=== PATIENT | female | born 1965 | race Caucasian/White ===

== ENCOUNTER 2020-06-04 15:23 | Outpatient (CLI) | payer OTHER, SELFPAY ==
--- NOTE | ~2020-06-04 | MM_ITS ---
EXAMINATION: MM screening [facility] BI w [place] HISTORY: Screening mammogram TECHNIQUE: Craniocaudal and mediolateral oblique 3-D tomosynthesis images were obtained and synthetic 2-D images were generated. CAD analysis was submitted and interpreted. COMPARISON: 02/03/2015, 12/24/2013 BREAST PARENCHYMAL COMPOSITION: There are scattered areas of fibroglandular density. FINDINGS: There is no evidence of suspicious mass, calcification, or architectural distortion to sugg est malignancy in either breast. There has been no suspicious interval change. IMPRESSION: 1. No mammographic evidence of malignancy. 2. Recommend routine screening mammography in one year. BI-RADS Category 1: Negative Reviewed, dictated and finalized at location A. R PATTERN INSPECTOR
== END 2020-06-04 15:24 | disposition home or self-care (01) ==
PROVIDERS: PCP Internal Medicine; Visit Provider Obstetrics & Gynecology
DX: Z12.31 Encounter for screening mammogram for malignant neoplasm of breast (principal)
CPT/HCPCS: 77063; 77067

== ENCOUNTER 2020-07-13 11:33 | Outpatient (NON) | payer OTHER, SELFPAY ==
[2020-07-14 01:42] LABS: SARS-CoV-2 RNA PCR Negative
== END 2020-07-13 11:34 ==
LOC: ANHCOVIDDT 11:34
PROVIDERS: PCP Internal Medicine; Visit Provider Internal Medicine
DX: R68.89 Other general symptoms and signs (principal); Z20.828 Contact with and (suspected) exposure to other viral communicable diseases
CPT/HCPCS: 87635; C9803; U0003

== ENCOUNTER 2021-09-20 11:10 | Observation (INO) | payer OTHER, SELFPAY ==
[2021-09-20] VITALS (25 sets, daily range): BP systolic 123–141; BP diastolic 71–94; PULSE 51–63; RESP 13–19; TEMP 36.4–36.9; O2SAT 97–98; BMI 25.0
--- NOTE | ~2021-09-20 | XR_ITS ---
EXAMINATION: XR chest 2V 09/20/2021 11:39 INDICATION: Chest tightness and dyspnea PROCEDURE: 2 view chest COMPARISON: Comparison to multiple prior studies sequentially, with oldest reviewed study dated 08/29. FINDINGS: The lungs are clear. The cardiomediastinal silhouette is within normal limits. There are no pleural effusions. There is no pneumothorax suspected. IMPRESSION: 1: NO ACUTE CARDIOPULMONARY DISEASE. Reviewed, dictated and finalized at location B. STRAP IRONER
--- NOTE | 2021-09-20 11:16 | ECG_ITS ---
Measurements Intervals [place] Rate: 58 P: -7 NV: 216 QRS: 15 QRSD: 93 T: -10 QT: 408 QTc: 402 Interpretive Statements SINUS BRADYCARDIA WITH FIRST DEGREE AV BLOCK LOW QRS VOLTAGE IN PRECORDIAL LEADS CONSIDER INFERIOR INFARCT, AGE INDETERMINATE BASELINE ARTIFACT- II, III, AVR, AVF, V1, V3-V6 ABNORMAL ECG Electronically Signed On 09-20-2021 12:33:59 CONTRACT DESIGNER by Anupam Taylor D.O.
[2021-09-20 11:30] LABS: Basophils Absolute Auto 0.1 K/mm3 (0.0-0.1); Basophils Percent Auto 0.8 % (0.2-1.2); Eosinophils Absolute Auto 0.1 K/mm3 (0-0.3); Eosinophils Percent Auto 1.4 % (0-4.4); Hematocrit 38.8 % (37.0-47.0); Hemoglobin 12.8 g/dL (12.0-15.0); Immature Granulocyte Absolute 0.02 K/mm3 (0.00-0.031); Immature Granulocyte Percent A 0.3 % (0-0.5); Lymphocytes Absolute Auto 2.02 K/mm3 (0.9-3.2); Lymphocytes Percent Auto 30.8 % (18.3-44.2); Mean Corpuscular Hemoglobin 27.9 pg (26-34); Mean Corpuscular Volume 84.7 fl (80-100); Mean Platelet Volume 10.7 fl (7.4-10.4); Monocytes Absolute Auto 0.4 K/mm3 (0.1-0.6); Monocytes Percent Auto 6.4 % (2.6-8.5); Neutrophils Percent Auto 60.3 % (45.5-73.1); Platelet Count Result 206 k/mm3 (150-375); Red Blood Count 4.58 M/mm3 (4.2-5.4); Red Cell Distribution Width 13.3 % (11.5-14.5); White Blood Count 6.6 K/mm3 (4.5-10.0)
[2021-09-20 11:40] LABS: Alanine Aminotransferase 13 U/L (4-35); Albumin Level 4.4 g/dL (3.5-5.1); Alkaline Phosphatase 82 U/L (38-126); Anion Gap 8 mmol/L (8-16); Aspartate Amino Transferase 24 U/L (14-36); Bilirubin,Total 0.5 mg/dL (0.2-1.3); Blood Urea Nitrogen 22 mg/dL (7-17); Calcium 9.3 mg/dL (8.4-10.2); Carbon Dioxide 23 mmol/L (22-30); Chloride 108 mmol/L (98-107); Estimated CRCL calculation 62 ml/min; Estimated Glomerular Filt Rate > 60; Glucose 92 mg/dL (65-110); INR 0.9; Lipase 121 U/L (23-300); Partial Thromboplastin Time 25.3 SECONDS (22.3-36.8); Potassium 3.9 mmol/L (3.4-5.0); Sodium 139 mmol/L (137-145)
[2021-09-20 11:51] LABS: Troponin I < 0.012 ng/mL (0.000-0.034)
--- NOTE | 2021-09-20 12:05 | PC.NURSE ---
EDP at bedside to assess patient.
--- NOTE | 2021-09-20 12:50 | ED.CHESTPAIN ---
HPI - Chest Pain General Chief Complaint: Chest Pain Stated Complaint: Chest Pain, jaw Tightness Time Seen by Provider: 09/20/21 12:03 Source: patient and RN notes reviewed Mode of arrival: ambulatory Limitations: no limitations History of Present Illness HPI narrative: This is a 56 year old female with history of hypertension and hyperlipidemia who presents for evaluation of chest pain. She has been having midsternal chest pain with pain in her jaw intermittently for 2 weeks. This pain usually only last for a few minutes. It occurs with exertion and rest. It is not always exertional. Today she was cleaning her patient's teeth when she developed chest pain again. She reports this pain was more severe and lasted longer. Her pain last approximately 30 minutes. She also had associated dizziness and shortness of breath. She states she has been seen by her PCP regarding this pain and it was thought to be anxiety. She reports having stressed test 15 years ago. Her father of an [place] at age 46. Related Data Home Medications Medication Instructions Recorded Confirmed estradiol-norethindrone acet 1 tablet PO HS 09/20/21 09/20/21 ibuprofen 600 mg PO PRN PRN 09/20/21 09/20/21 lisinopril 10 mg PO HS 09/20/21 09/20/21 trazodone 50 mg PO HS 09/20/21 09/20/21 venlafaxine 37.5 mg PO HS 09/20/21 09/20/21 Allergies Allergy/AdvReac Type Severity Reaction Status Date / Time fluconazole Allergy Unknown Hives Verified 09/20/21 15:27 codeine AdvReac Severe Nausea Verified 09/20/21 15:27 Review of Systems Review of Systems: All systems reviewed & are unremarkable except as noted in HPI and below PMFSH Past Medical History Medical History (Updated 09/20/21 @ 20:59 by Vanna Pinto MD) Anxiety Gastroesophageal reflux disease Hard of hearing Hypertension Hypothyroidism No longer on medication. Skin cancer Surgical History Surgical History (Updated 09/20/21 @ 20:24 by Kymberly Mckeon PA-C) History of colonoscopy History of dilation and curettage History of squamous cell carcinoma excision History of surgery on left wrist Left wrist compartment release for de Quervain syndrome. Family History Family History (Updated 09/20/21 @ 20:25 by Kymberly Mckeon PA-C) Father Hypertension Acute myocardial infarction of an [place] at age 46. Mother Alzheimer's dementia Social History Social History (Updated 09/20/21 @ 20:26 by Kymberly Mckeon PA-C) Social History: Surrogate decision maker: Julio Matson, brother. Code status: Full code. Smoking status: Never smoker Alcohol intake: never Substance use: former Substance use type: former substance user Living arrangements: alone Additional occupation/education comments: Dental hygienist Spiritual care concerns: No Exam Const: General: no acute distress and alert Orientation/consciousness: patient oriented x3 Eyes: EOM: EOMs intact bilaterally Chest: Chest palpation & inspection: normal inspection of the chest Resp: Effort & Inspection: normal respiratory effort and no retractions Auscultation: clear to auscultation bilaterally Cardio: Rate: regular rate Rhythm: regular rhythm Heart sounds: no murmurs GI: GI Palp: Yes Soft to palpation, No Tenderness to palpation present (GI) and No Guarding due to palpation present (GI) Auscultation: normal bowel sounds Back/Spine/Pelvis: Back: no CVA tenderness Skin: General skin exam: normal color Rashes: no rashes Neuro: General: patient oriented x3, moves all extremities and CN's II-XI intact bilaterally Psych: Mental Status: mental status grossly normal Affect: normal affect Course Reevaluation(s) Reevaluation #1: Patient is still pain free. I discussed with patient labs and plan to obs. She understands she is being obs for evaluation by cardiology due to heart score classifying elevated risk . I spoke with Emily Torres from [facility] to see if they bashir
--- NOTE | 2021-09-20 14:50 | PM.IMHP ---
H&P: HPI History of Present Illness Date/Time: 09/20/21 14:50 Chief Complaint: Chest pain. Narrative: This is a 56-year-old female with hypertension and anxiety who presented to the ER for evaluation of intermittent chest pain for the past 2 weeks. Her symptoms start with an aching discomfort in her lower jaw and teeth and shortly thereafter she develops midsternal chest tightness associated with mild shortness of breath and occasional nausea and dizziness. She sees no pattern as to when it occurs, reporting that it can happen with exertion or rest. She has not identified any aggravating or alleviating factors. It has been self-limiting, lasting between 10 to 15 minutes at a time. She saw her primary care provider for the symptoms last week at which time it was likely due to an increase in stress and anxiety recently. An EKG was not done at that time. 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 Prior to arrival she took 281 mg aspirin and she has not had any discomfort since that time. It should be noted that the patient's father of an acute [place] at the age of 46. The patient had a stress test done approximately 15 years ago which was reportedly unremarkable. Review of Systems Review of Systems: Twelve systems were reviewed. She seems that she had COVID at the beginning of July as multiple colleagues had COVID and her symptoms were consistent with such however she was unable to have a test. She was vaccinated and received a booster as well. No orthopnea, PND, or lower extremity edema. She denies pleuritic pain and palpitations. Except as documented, all other systems were reviewed and are negative. [facility] Past Medical History Medical History (Updated 09/20/21 @ 20:27 by Kymberly Mckeon PA-C) Anxiety Gastroesophageal reflux disease Hard of hearing Hypertension Hypothyroidism No longer on medication. Skin cancer Surgical History Surgical History (Updated 09/20/21 @ 20:24 by Kymberly Mckeon PA-C) History of colonoscopy History of dilation and curettage History of squamous cell carcinoma excision History of surgery on left wrist Left wrist compartment release for de Quervain syndrome. Family History Family History (Updated 09/20/21 @ 20:25 by Kymberly Mckeon PA-C) Father Hypertension Acute myocardial infarction of an [place] at age 46. Mother Alzheimer's dementia Social History Social History (Updated 09/20/21 @ 20:26 by Kymberly Mckeon PA-C) Social History: Surrogate decision maker: Julio Matson, brother. Code status: Full code. Smoking status: Never smoker Alcohol intake: never Substance use: former Substance use type: former substance user Living arrangements: alone Additional occupation/education comments: Dental hygienist Spiritual care concerns: No Meds Home Medications and Allergies Home Medications Medication Instructions Recorded Confirmed Type estradiol-norethindrone acet 1 tablet PO HS 09/20/21 09/20/21 History ibuprofen 600 mg PO PRN PRN 09/20/21 09/20/21 History lisinopril 10 mg PO HS 09/20/21 09/20/21 History trazodone 50 mg PO HS 09/20/21 09/20/21 History venlafaxine 37.5 mg PO HS 09/20/21 09/20/21 History Allergies Allergy/AdvReac Type Severity Reaction Status Date / Time fluconazole Allergy Unknown Hives Verified 09/20/21 15:27 codeine AdvReac Severe Nausea Verified 09/20/21 15:27 Vital Signs Vital Signs - 24 hr 09/20/21 11:18 09/20/21 11:25 09/20/21 11:30 Temperature 98.4 F Pulse Rate 59 L 63 62 Respiratory Rate 16 16 Blood Pressure 124/83 126/79 Pulse Oximetry 98 97 09/20/21 11:45 09/20/21 12:00 09/20/21 12:15 Temperature Pulse Rate 59 L 57 L 57 L Respiratory Rate 16 16 17 Blood Pressure 130/79 128/83 130/86 Pulse Oximetry 97 98 98 09/20/21 12:24 09/20/21 12:25 09/20/21 12:30 Temperature
--- NOTE | 2021-09-20 14:53 | PC.NURSE ---
Hospitalist HAIRSPRING FABRICATION SUPERVISOR at bedside.
--- NOTE | 2021-09-20 15:20 | PC.NURSE ---
This patient, Vivienne Park, was admitted to [facility]. Patient/family oriented to hospital policies and general routines including ID bracelet, bed and alarms, visiting hours, pain management, procedures, bathroom and other care routines, personal items, smoking policy, room service/diet, and visiting hours. Information on how to activate the Rapid Response Team has been discussed. Patient/Family are encouraged to report perceived risks to care and to ask questions if they do not understand what they are told or what they should do.
[2021-09-20 15:45] LABS: Troponin I < 0.012 ng/mL (0.000-0.034)
[2021-09-20 19:56] LABS: Troponin I < 0.012 ng/mL (0.000-0.034)
[2021-09-20] MEDS: ENOXAPARIN 40 MG/0.4 ML SYRINGE SUB-Q (22:04)
[2021-09-21] VITALS (11 sets, daily range): BP systolic 100–117; BP diastolic 58–71; PULSE 46–69; RESP 14–17; TEMP 36.8; O2SAT 95–97
[2021-09-21 06:12] LABS: LDL Cholesterol Direct 128 mg/dL
[2021-09-21 06:18] LABS: Anion Gap 6 mmol/L (8-16); Blood Urea Nitrogen 18 mg/dL (7-17); Calcium 8.5 mg/dL (8.4-10.2); Carbon Dioxide 21 mmol/L (22-30); Chloride 109 mmol/L (98-107); Cholesterol 222 mg/dL (0-200); Estimated CRCL calculation 70 ml/min; Estimated Glomerular Filt Rate > 60; Glucose 91 mg/dL (65-110); HDL Direct 55 mg/dL; Magnesium 2.4 mg/dL (1.6-2.3); Potassium 4.1 mmol/L (3.4-5.0); Sodium 136 mmol/L (137-145); Triglycerides 97 mg/dL (<150)
[2021-09-21] MEDS: ASPIRIN 81 MG CHEWABLE TABLET PO (08:47)
[2021-09-21] MEDS: ACETAMINOPHEN 325 MG TABLET 650 MG PO (10:19)
--- NOTE | 2021-09-21 13:15 | PM.CNCAR ---
Assessment and Plan Additional Plan This is a 56-year-old lady with a history of some stress and anxiety who has been having episodes of nonexertional chest and jaw pain off and on for several weeks. Following admission there is no evidence of acute coronary syndrome. I believe she is stable enough to be discharged for outpatient evaluation. I would recommend arranging for a stress echocardiogram which I intend to do in my office in the next time of mutual convenience. Hopefully that will be a negative study and provide reassurance obviously if we see evidence of ischemia angiography will be recommended. Hemanth Reilly MD [facility] History of Present Illness History of Present Illness Consult date/time: 09/21/21 13:15 Consult reason: chest pain Reason For Visit: chest pain Narrative: This is a 56-year-old lady am seeing at the request of the hospitalist because of chest and jaw pain with which she was admitted to the hospital yesterday after being seen in the emergency room. She is not known to have any cardiac problems before this and if she has been having episodes of pain in the chest and into the jaw intermittently for about 2 or 3 weeks at least. These episodes seem to occur at random they are not related to physical exertion that she has noticed. She does not have any associated sense of diaphoresis nausea or vomiting she does not have any radiation of the pain to any other location. She is not experiencing any orthopnea PND or edema. She does not have any history of palpitations or syncope. In the course of her job yesterday she had the symptoms. 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 Her supply officer brought to the emergency room for evaluation she was then admitted to the hospital. The patient's ECG does not show any evidence of acute injury or ischemia. Troponin levels are normal x3 sets. She is currently asymptomatic and has no other complaints. She says she does have a history of an anxiety issue and she was wondering if he symptoms could be related to stress. Review of Systems Constitutional: Constitutional: Reports no additional constitutional complaints Eyes: Eyes: Reports no additional eye complaints ENT: Reports system reviewed and no additional complaints, except as documented Cardiovascular: Cardiovascular: Reports as per HPI Respiratory: Respiratory: Reports no additional respiratory complaints Gastrointestinal: Gastrointestinal: Reports no additional gastrointestinal complaints Musculoskeletal: Musculoskeletal: Reports no additional musculoskeletal complaints Integumentary/Breasts: Skin/Breast: Reports system reviewed and no additional complaints, except as docu Neurologic: Reports system reviewed and no additional complaints, except as documented Endocrine: Endocrine: Reports no additional endocrine complaints Hematologic/Lymphatic: Hematologic/Lymphatic: Reports no additional hematologic/lymphatic complaints Allergic/Immunologic: Allergic/Immunologic: Reports no additional allergic/immunologic complaints [facility] Past Medical History Medical History (Updated 09/20/21 @ 20:59 by Vanna Pinto MD) Anxiety Gastroesophageal reflux disease Hard of hearing Hypertension Hypothyroidism No longer on medication. Skin cancer Surgical History Surgical History (Updated 09/20/21 @ 20:24 by Kymberly Mckeon PA-C) History of colonoscopy History of dilation and curettage History of squamous cell carcinoma excision History of surgery on left wrist Left wrist compartment release for de Quervain syndrome. Family History Family History (Updated 09/20/21 @ 20:25 by Kymberly Mckeon PA-C) Father Hypertension Acute myocardial infarction of an [place] at age 46. Mother Alzheimer's dementia Social History Social History (Updated 09/20/21 @ 20:26 by Kymberly Mckeon PA-C) Social History: Surrogate decision maker
[2021-09-21 14:05] LABS: D Dimer 0.34 ug/mL (<0.48)
--- NOTE | 2021-09-21 14:59 | PM.DS ---
DS: Admitting Diagnosis Discharge Date 09/21/21 Admitting Diagnosis chest pain DS: Discharge Diagnosis Discharge Diagnosis (1) Chest pain: Code(s): R07.9 - Chest pain, unspecified Status: Acute Assessment and Plan: -history of some stress and anxiety who has been having episodes of nonexertional chest and jaw pain off and on for several weeks -pt was admitted overnight for cardiac monitoring -hx of HTN, early onset coronary artery disease in the family -negative trop x3 -EKG shows sinus bradycardia with first-degree AV block -evaluated by cardiology who states no evidence of acute coronary syndrome. Dr. Reilly feels patient is stable to be discharged for outpatient stress echo. She will follow up with him outpatient. (2) Hypertension: Code(s): I10 - Essential (primary) hypertension Status: Acute Assessment and Plan: -stable -continued antihypertensives (3) Anxiety: Code(s): F41.9 - Anxiety disorder, unspecified Status: Acute Assessment and Plan: -Initially patient was blaming her symptoms on anxiety. -No acute issues at this time. -Continued venlafaxine. (4) Bradycardia: Code(s): R00.1 - Bradycardia, unspecified Status: Acute Assessment and Plan: -EKG shows sinus bradycardia with first-degree AV block thus will hold on beta blockade at this time. -TSH WNL -outpatient cardiology follow up DS: Summary Hospital Course Reason for hospitalization: 56-year-old female with hypertension and anxiety who presented to the ER for evaluation of intermittent chest pain for the past 2 weeks. Please see HPI for further details. Hospital Course: Please see above for details of hospital course. Status at Discharge Cognitive/behavioral status at discharge: stable Functional status at discharge: independent ambulation Overall status at discharge: patient is progressing back to baseline Time Spent with Patient Time attestation: Total time spent providing and/or coordinating discharge services: 35 Time spent: Greater than 30 minutes Exam Narrative: General: Well-developed female sitting up in bed. Weight: 76.7 kg. BMI: 25.0. HEENT: PERRL. Sclerae anicteric. Oral mucosa moist. Oropharynx clear. Neck: Supple. Respiratory: Lungs are clear to auscultation bilaterally. Cardiovascular: Bradycardic with regular rhythm with S1-S2. Chest: Mild tenderness to palpation of the lower sternum. Gastrointestinal: Abdomen is soft, nontender, and nondistended with positive bowel sounds. Skin: Warm and dry. No rash or lesions on limited exam. Extremities: No cyanosis, clubbing, or edema. Radial and pedal pulses intact. Neurological: Alert. Cranial nerves 2-12 are grossly intact. No gross focal deficits to casual conversation. Psychiatric: Pleasant and cooperative with normal mood and affect. Judgment and insight intact. DS: Data Data Completed and Pending Labs on day of discharge: Labs from last 24 hours 09/21/21 09/21/21 09/21/21 13:47 05:14 05:14 D-Dimer 0.34 Sodium 136 L Potassium 4.1 Chloride 109 H Carbon Dioxide 21 L Anion Gap 6 L BUN 18 H Creatinine 0.80 Estim Creat Clear Calc 70 Estimated GFR > 60 Glucose 91 Calcium 8.5 Magnesium 2.4 H Troponin I Triglycerides 97 Cholesterol 222 H LDL Cholesterol Direct 128 HDL Direct 55 TSH (Reflex) 3.610 09/20/21 09/20/21 19:19 16:38 D-Dimer Sodium Potassium Chloride Carbon Dioxide Anion Gap BUN Creatinine Estim Creat Clear Calc Estimated GFR Glucose Calcium Magnesium Troponin I < 0.012 < 0.012 Triglycerides Cholesterol LDL Cholesterol Direct HDL Direct TSH (Reflex) Discharge Plan Discharge Attending physician on discharge: Maria Isabel Encinas Consulting providers: Hemanth Reilly Discharging Clinician: Brown
--- NOTE | 2021-09-21 16:11 | PC.NURSE ---
Patient alert/oriented, FREY, no pain, no distress noted of any kind. Left AC 20g d/c'd, no bleeding/hematoma at site, gauze dressing applied. Patient wheelchaired down to front lobby to waiting private vehicle. No prescriptions noted. Discharge paperwork explained with verbal understanding noted.
== END 2021-09-21 16:19 | disposition home or self-care (01) ==
LOC: ANHED 12:03 → ANHCPC 14:10
PROVIDERS: Emergency Medicine; Physician Assistant; Admitting Provider Internal Medicine; Emergency Provider General Practice; PCP Internal Medicine; Visit Provider Internal Medicine
DX: R07.9 Chest pain, unspecified (principal); I44.0 Atrioventricular block, first degree; R00.1 Bradycardia, unspecified; I10 Essential (primary) hypertension; F41.9 Anxiety disorder, unspecified; K21.9 Gastro-esophageal reflux disease without esophagitis; E03.9 Hypothyroidism, unspecified; R06.02 Shortness of breath; Z85.828 Personal history of other malignant neoplasm of skin
CPT/HCPCS: 36415; 71046; 80048; 80053; 80061; 83690; 83735; 84443; 84484; 85025; 85380; 85610; 85730; 93005; 96372; 99285; A9270; G0378; J1650

== ENCOUNTER 2021-09-30 10:50 | Emergency (ER) | payer OTHER, SELFPAY ==
[2021-09-30] VITALS (16 sets, daily range): BP systolic 116–147; BP diastolic 72–86; PULSE 53–76; RESP 13–20; TEMP 36.3–36.8; O2SAT 93–100
--- NOTE | ~2021-09-30 | XR_ITS ---
EXAMINATION: XR chest 2V DATE: 09/30/2021 11:14 INDICATION: Right chest pain. Shortness of breath. TECHNIQUE: Frontal and lateral views of the chest were obtained. COMPARISON: Chest 2 views 09/20/2021 FINDINGS: The chest demonstrates clear lungs without pneumonia, pleural effusion, or pneumothorax. Th e heart size is normal. IMPRESSION: 1. No acute cardiopulmonary disease. Reviewed, dictated and finalized at location A. BUILDER APPRENTICE
--- NOTE | ~2021-09-30 | CT_ITS ---
EXAMINATION: Vanna Pinto MD DATE: 09/30/2021 12:17 INDICATION: Chest pain. TECHNIQUE: Computed tomographic angiography (CTA) of the chest, abdomen, and pelvis was performed wit h 100 mL Omnipaque-350 intravenous contrast. Automated exposure control and iterative reconstruction technique were employed. The dose-length product was 642.85 mGy-cm. Maximum intensity projection 3D-r econstructions of the aorta and other arteries were constructed by the technologist on a separate wor kstation. COMPARISON: None. FINDINGS: CHEST CTA: The lungs demonstrate mild atelectasis. No pleural effusion. The heart size is normal. No pericardial effusion. Thoracic aorta is normal. There is no pulmonary embolus. There is moderate thoracic spondy losis. ABDOMEN AND PELVIS CTA: The liver, gallbladder, spleen, pancreas, and adrenal glands are normal. There is cortical thinning o f the kidneys. There are no dilated loops of bowel. The appendix is normal. There are no pathological ly enlarged lymph nodes. There is no free intraperitoneal fluid. There is mild aortic atherosclerosis . No aneurysm or dissection. There is no significant stenosis of celiac axis, superior mesenteric art melanie, the renal arteries, or inferior mesenteric artery. There is mild lumbar spondylosis. IMPRESSION: 1. Mild aortic atherosclerosis. No aneurysm or dissection. 2. No pulmonary embolus. Reviewed, dictated and finalized at location A. [employer]
--- NOTE | 2021-09-30 10:57 | ECG_ITS ---
Measurements Intervals [place] Rate: 56 P: 19 [place]: 230 QRS: 13 QRSD: 85 T: 29 QT: 405 QTc: 391 Interpretive Statements SINUS BRADYCARDIA WITH FIRST DEGREE AV BLOCK LOW QRS VOLTAGE IN PRECORDIAL LEADS [QRS DEFLECTION < 1.0 mV IN CHEST LEADS] POSSIBLE ANTEROSEPTAL MYOCARDIAL INFARCTION , PROBABLY OLD [30 ms Q WAVE IN V3/V4, OR R < 0.2 mV IN V4] COMPARED TO ECG 09/20/2021 11:20:25 NO SIGNIFICANT CHANGES Electronically Signed On 09-30-2021 15:54:37 THREAD GRINDER TOOL by Hemanth Reilly M.D.
[2021-09-30 11:41] LABS: Basophils Absolute Auto 0.1 K/mm3 (0.0-0.1); Basophils Percent Auto 0.7 % (0.2-1.2); Eosinophils Absolute Auto 0.1 K/mm3 (0-0.3); Eosinophils Percent Auto 1.3 % (0-4.4); Hemoglobin 13.7 g/dL (12.0-15.0); Immature Granulocyte Absolute 0.02 K/mm3 (0.00-0.031); Immature Granulocyte Percent A 0.3 % (0-0.5); Lymphocytes Absolute Auto 2.16 K/mm3 (0.9-3.2); Lymphocytes Percent Auto 31.2 % (18.3-44.2); Mean Corpuscular HGB Conc 31.9 g/dl (32-36); Mean Corpuscular Hemoglobin 27.6 pg (26-34); Mean Corpuscular Volume 86.7 fl (80-100); Monocytes Absolute Auto 0.4 K/mm3 (0.1-0.6); Monocytes Percent Auto 6.1 % (2.6-8.5); Neutrophils Absolute Auto 4.2 K/mm3 (1.3-6.7); Neutrophils Percent Auto 60.4 % (45.5-73.1); Platelet Count Result 207 k/mm3 (150-375); Red Blood Count 4.96 M/mm3 (4.2-5.4); Red Cell Distribution Width 13.8 % (11.5-14.5); White Blood Count 6.9 K/mm3 (4.5-10.0)
--- NOTE | 2021-09-30 11:44 | PC.NURSE ---
Patient reports that she took Aspirin prior to arrival to ER.
[2021-09-30 11:51] LABS: INR 0.9; Prothrombin Time 12.1 Seconds (11.1-14.7)
[2021-09-30 11:52] LABS: Partial Thromboplastin Time 26.4 SECONDS (22.3-36.8); Potassium 3.9 mmol/L (3.4-5.0)
[2021-09-30 11:56] LABS: Alanine Aminotransferase 19 U/L (4-35); Albumin Level 4.8 g/dL (3.5-5.1); Alkaline Phosphatase 104 U/L (38-126); Anion Gap 11 mmol/L (8-16); Aspartate Amino Transferase 25 U/L (14-36); Bilirubin,Total 0.6 mg/dL (0.2-1.3); Blood Urea Nitrogen 20 mg/dL (7-17); Carbon Dioxide 24 mmol/L (22-30); Chloride 107 mmol/L (98-107); Estimated CRCL calculation 70 ml/min; Estimated Glomerular Filt Rate > 60; Glucose 97 mg/dL (65-110); Lipase 121 U/L (23-300); Sodium 142 mmol/L (137-145)
--- NOTE | 2021-09-30 11:57 | PC.NURSE ---
Dr. Pinto at bedside to assess pt.
[2021-09-30 12:03] LABS: Troponin I < 0.012 ng/mL (0.000-0.034)
[2021-09-30] MEDS: ONDANSETRON INJ 4 MG/2 ML VIAL IV PUSH (12:05)
[2021-09-30] MEDS: MORPHINE SULFATE (*CRX) 4 MG/ML INJ IV PUSH (12:05)
--- NOTE | 2021-09-30 12:11 | ED.CHESTPAIN ---
HPI - Chest Pain General Chief Complaint: Chest Pain Stated Complaint: chest pain Time Seen by Provider: 09/30/21 11:40 Source: patient and RN notes reviewed Mode of arrival: ambulatory Limitations: no limitations History of Present Illness HPI narrative: This is a 56 year old female with history of hypertension and anxiety who presents for evaluation of chest pain. Patient has been having intermittent left chest pain with pain in her jaw for a couple of weeks. She was evaluated in ER over 1 week ago. Cardiology evaluated her and did not feel she was having ACS at that time. She is awaiting to get ECHO stress test as an outpatient. She has returned to ER today because she developed chest pain again this morning at 10 am. She is having diffuse chest tightness this morning which is different. She also reports associated sweating with shortness of breath. She denies cough fever, nausea, vomiting or abdominal pain. She rates pain as 5/10 Related Data Home Medications Medication Instructions Recorded Confirmed estradiol-norethindrone acet 1 tablet PO HS 09/20/21 09/20/21 ibuprofen 600 mg PO PRN PRN 09/20/21 09/20/21 lisinopril 10 mg PO HS 09/20/21 09/20/21 trazodone 50 mg PO HS 09/20/21 09/20/21 venlafaxine 37.5 mg PO HS 09/20/21 09/20/21 Allergies Allergy/AdvReac Type Severity Reaction Status Date / Time fluconazole Allergy Unknown Hives Verified 09/30/21 11:04 codeine AdvReac Severe Nausea Verified 09/30/21 11:04 Review of Systems Review of Systems: All systems reviewed & are unremarkable except as noted in HPI and below PMFSH Past Medical History Medical History (Updated 09/30/21 @ 15:35 by Vanna Pinto MD) Anxiety Gastroesophageal reflux disease Hard of hearing Hypertension Hypothyroidism No longer on medication. Skin cancer Surgical History Surgical History (Updated 09/20/21 @ 20:24 by Kymberly Mckeon PA-C) History of colonoscopy History of dilation and curettage History of squamous cell carcinoma excision History of surgery on left wrist Left wrist compartment release for de Quervain syndrome. Family History Family History (Updated 09/20/21 @ 20:25 by Kymberly Mckeon PA-C) Father Hypertension Acute myocardial infarction of an [place] at age 46. Mother Alzheimer's dementia Social History Social History (Updated 09/20/21 @ 20:26 by Kymberly Mckeon PA-C) Social History: Surrogate decision maker: Julio Matson, brother. Code status: Full code. Smoking status: Never smoker Alcohol intake: never Substance use: former Substance use type: former substance user Additional occupation/education comments: Dental hygienist Spiritual care concerns: No Exam Const: General: no acute distress and alert Orientation/consciousness: patient oriented x3 Eyes: EOM: EOMs intact bilaterally Chest: Chest palpation & inspection: normal inspection of the chest Resp: Effort & Inspection: normal respiratory effort and no retractions Auscultation: clear to auscultation bilaterally Cardio: Rate: regular rate Rhythm: regular rhythm Heart sounds: no murmurs GI: GI Palp: Yes Soft to palpation, No Tenderness to palpation present (GI) and No Guarding due to palpation present (GI) Auscultation: normal bowel sounds Back/Spine/Pelvis: Back: no CVA tenderness Skin: General skin exam: normal color Rashes: no rashes Neuro: General: patient oriented x3, moves all extremities and CN's II-XI intact bilaterally Psych: Mental Status: mental status grossly normal Affect: normal affect Course Reevaluation(s) Reevaluation #1: PAtient was evaluated by cardiology on last hospitalization. IT was thought patient was not related to ACS. Her pain has completely resolved after morphine. Her symptoms are not exertional. I spoke with cardiology and they agree patient can continue with outpatient evaluation. They have order stress ECHO for patient. She has been given
[2021-09-30 14:32] LABS: Troponin I < 0.012 ng/mL (0.000-0.034)
--- NOTE | 2021-09-30 15:09 | PC.NURSE ---
Dr. Pinto back at bedside to update patient on results and plan of care.
== END 2021-09-30 15:53 | disposition home or self-care (01) ==
PROVIDERS: Emergency Provider General Practice; PCP Internal Medicine
DX: R07.89 Other chest pain (principal); I10 Essential (primary) hypertension; K21.9 Gastro-esophageal reflux disease without esophagitis; F41.9 Anxiety disorder, unspecified; Z85.828 Personal history of other malignant neoplasm of skin; I70.0 Atherosclerosis of aorta; R00.1 Bradycardia, unspecified; I44.0 Atrioventricular block, first degree; R94.31 Abnormal electrocardiogram [ECG] [EKG]
CPT/HCPCS: 36415; 71046; 71275; 74174; 80053; 83690; 84484; 85025; 85610; 85730; 93005; 96374; 96375; 99284; J2270; J2405; Q9967